=== PATIENT | male | born 1980 | race African-American/Black ===

== ENCOUNTER 2017-07-27 14:16 | Emergency (ER) | payer OTHER ==
[2017-07-27 14:25] VITALS: BP 148/71; PULSE 92; TEMP 99.1; BMI 32.1
[2017-07-27] MEDS ORDERED: ONDANSETRON 4 MG/2 ML VIAL IVPUSH ONE ×2 (15:19→19:45)
[2017-07-27] MEDS ORDERED: SODIUM CHLORIDE 1,000 ML IV STA (15:19)
--- NOTE | 2017-07-27 15:19 | PDOC ---
History of Present Illness - General Chief Complaint: Vomiting/Diarrhea Stated Complaint: Vomiting/Diarrhea Time Seen by Provider: 07/27/17 15:18 History Source: Patient - History of Present Illness Timing/Duration: reports: constant Abdominal Pain Onset Location: reports: generalized abdomen Past History - Past Medical History Allergies/Adverse Reactions: Allergies Allergy/AdvReac Type Severity Reaction Status Date / Time No Known Allergies Allergy Verified 07/27/17 14:21 Home Medications: Ambulatory Orders NK [No Known Home Medication] 11/10/16 Anemia: No Asthma: No Cancer: No Cardiac Disorders: No CVA: No COPD: No CHF: No Dementia: No Diabetes: No GI Disorders: No Disorders: No HTN: No Hypercholesterolemia: No Liver Disease: No Seizures: No Thyroid Disease: No Other medical history: denies - Surgical History Abdominal Surgery: No Appendectomy: No Cardiac Surgery: No Cholecystectomy: No Lung Surgery: No Neurologic Surgery: No Orthopedic Surgery: No - Immunization History Immunization Up to Date: Yes - Suicide/Smoking/Psychosocial Hx Smoking Status: No Smoking History: Never smoked Have you smoked in the past 12 months: No Number of Cigarettes Smoked Daily: 0 Hx Alcohol Use: No Drug/Substance Use Hx: No Substance Use Type: Marijuana Hx Substance Use Treatment: No Review of Systems - Review of Systems Constitutional: No: Chills, Fever ABD/GI: Yes: Diarrhea, Nausea, Vomiting, Abdominal cramping *Physical Exam - Vital Signs Last Vital Signs Temp Pulse Resp BP Pulse Ox 99.1 F 92 H 20 148/71 99 07/27/17 14:22 07/27/17 14:22 07/27/17 14:22 07/27/17 14:22 07/27/17 14:22 - Physical Exam General Appearance: Yes: Appropriately Dressed. No: Apparent Distress HEENT: positive: Normal Voice Neck: positive: Supple Respiratory/Chest: negative: Respiratory Distress Gastrointestinal/Abdominal: positive: Soft. negative: Tender Musculoskeletal: negative: CVA Tenderness Integumentary: positive: Dry, Warm Neurologic: positive: Fully Oriented, Alert, Normal Mood/Affect ED Treatment Course - LABORATORY CBC & Chemistry Diagram: 07/27/17 17:19 07/27/17 17:19 Medical Decision Making - Medical Decision Making 07/27/17 16:43 36-year-old male, denies any past medical history, here with nausea, vomiting and diarrhea. Patient states symptoms started several hours after eating [place] food Angel night. Has had numerous episodes of non-bloody non-bilious vomitus and non-bloody diarrhea. At some point started to have vague abdominal discomfort. Tried drinking gingerale with no relief. No fevers or chills. No sick contacts or recent travel. See exam Possibly gastroenteritis No RF for serious dysentery Stable w/ benign abd -IVF -zofran -labs -reassess 07/27/17 18:59 Signed out to JUAN Sen pending chem and reassessment 07/27/17 18:54 *DC/Admit/Observation/Transfer Diagnosis at time of Disposition: Gastroenteritis - Discharge Dispostion Condition at time of disposition: Improved - Referrals Referrals: Gauri Barnes MD [Primary Care Provider] - - Patient Instructions Printed Discharge Instructions: Viral Gastroenteritis Additional Instructions: The BRAT diet is a bland-food diet that is often recommended for adults and children. BRAT stands for Bananas, Rice, Applesauce and [place]. The BRAT diet can help you recover from an upset stomach or diarrhea for the following reasons : It includes binding foods. These are low-fiber foods that can help make your stools firmer. It includes bananas, which are high in potassium and help replace nutrients your body has lost because of vomiting or diarrhea. Follow diet for the next 48 hrs only, then you can resume your normal diet Return to ED for worsening of symptoms
[2017-07-27] MEDS ORDERED: ONDANSETRON 4 MG/2 ML VIAL ONE ×2 (16:29→19:55)
[2017-07-27 18:01] LABS: BASOPHIL 0.4 % (0-2.0); EOSINOPHIL 0.8 % (0-4.5); MCH 29.3 pg (25.7-33.7); MCHC 33.7 g/dl (32.0-35.9); MEAN CELL VOLUME 87.2 fl (80-96); NEUTROPHILS 66.8 % (42.8-82.8); PLATELET COUNT 160 K/MM3 (134-434); RDW 14.3 % (11.9-15.9); WHITE BLOOD COUNT 9.2 K/mm3 (4.0-10.0)
--- NOTE | 2017-07-27 19:14 | PDOC ---
*Physical Exam - Vital Signs Last Vital Signs Temp Pulse Resp BP Pulse Ox 99.1 F 92 H 20 148/71 99 07/27/17 14:22 07/27/17 14:22 07/27/17 14:22 07/27/17 14:22 07/27/17 14:22 - Physical Exam Comments: 07/27/17 19:13 Sign-out received from outgoing ER provider Ruthy. Pt interviewed and examined. Briefly, patient is a 36 yo M with no significant PMH who presents to ED with vomiting and diarrhea x 3 days after eating [place] food. Received IVF and Zofran thus far. At this time patient states he is still not feeling well and that he just went to the bathroom and vomited and had an episode of diarrhea. He states "I feel like I have to pass bowels but whenever I go it's just water. " -Zofran, Maalox, Loperamide, Protonix, Pepcid Ancillary studies reviewed. Awaiting chemistry; will reassess. 07/27/17 19:46 Chemistry hemolyzed for second time. RN to redraw. 07/27/17 21:00 CMP results unremarkable. Patient reassessed; states he is feeling better at this time and is ready to go home. Zofran, loperamide rx sent to pharm. Advised patient to take medications as prescribed and f/u with PCP if symptoms persist. Advised patient of signs and symptoms for return to ER; patient verbalized understanding and agrees to plan. ED Treatment Course - LABORATORY CBC & Chemistry Diagram: 07/27/17 17:19 07/27/17 20:10 - ADDITIONAL ORDERS Additional order review: Laboratory Results 07/27/17 17:19 Sodium Cancelled Potassium Cancelled Chloride Cancelled Carbon Dioxide Cancelled Anion Gap Cancelled BUN Cancelled Creatinine Cancelled Creat Clearance w eGFR Cancelled Random Glucose Cancelled Calcium Cancelled Total Bilirubin Cancelled AST Cancelled ALT Cancelled Alkaline Phosphatase Cancelled Total Protein Cancelled Albumin Cancelled 07/27/17 17:19 RBC 5.48 MCV 87.2 MCHC 33.7 RDW 14.3 MPV 11.0 Neutrophils % 66.8 D Lymphocytes % 19.6 D Monocytes % 12.4 H Eosinophils % 0.8 Basophils % 0.4 - Medications Given in the ED: ED Medications Discontinued Medications Generic Name Dose Route Start Last Admin Trade Name Freq PRN Reason Stop Dose Admin Sodium Chloride 1,000 mls @ 1,000 mls/hr 07/27/17 15:19 07/27/17 16:30 Normal Saline - IV 07/27/17 16:18 1,000 mls/hr ASDIR STA Administration Ondansetron HCl 4 mg 07/27/17 15:19 07/27/17 16:30 Zofran Injection IVPUSH 07/27/17 15:20 4 mg ONCE ONE Administration *DC/Admit/Observation/Transfer Diagnosis at time of Disposition: Gastroenteritis - Discharge Dispostion Disposition: HOME Condition at time of disposition: Improved Admit: No - Prescriptions Prescriptions: Loperamide HCl/Simethicone [Imodium Multi-Symptom Rel Cplt] 1 each PO BID PRN # 14 tablet PRN Reason: Diarrhea Ondansetron [Zofran *Odt*] 8 mg SL TID #21 od.tablet - Referrals Referrals: Gauri Barnes MD [Primary Care Provider] - - Patient Instructions Printed Discharge Instructions: Viral Gastroenteritis Additional Instructions: Please take medications as prescribed and follow up with your primary care doctor if symptoms persist. As discussed, please drink plenty of fluids and follow the BRAT diet for the next 2 days. The BRAT diet is a bland-food diet that is often recommended for adults and children. BRAT stands for Bananas, Rice , Applesauce and [place]. The BRAT diet can help you recover from an upset stomach or diarrhea for the following reasons: It includes binding foods. These are low-fiber foods that can help make your stools firmer. It includes bananas, which are high in potassium and help replace nutrients your body has lost because of vomiting or diarrhea. Follow diet for the next 48 hrs only, then you can resume your normal diet. Return to ED for worsening of symptoms. - Post Discharge Activity
[2017-07-27] MEDS ORDERED: LOPERAMIDE HCL 1 MG/5 ML UNIT DOSE CUP PO ONE (19:45)
[2017-07-27] MEDS ORDERED: MAG HYDROX/AL HYDROX/SIMETH 355 ML ORAL.SUSP PO ONE (19:45)
[2017-07-27] MEDS ORDERED: FAMOTIDINE 20 MG/50 ML IVPB 50 ML IVPB ONE ×2 (19:45→19:55)
[2017-07-27] MEDS ORDERED: PANTOPRAZOLE 40 MG TABLET (FP) PO ONE (19:45)
[2017-07-27] MEDS ORDERED: MAG HYDROX/AL HYDROX/SIMETH 30 ML UNIT-DOSE CUP ONE (19:54)
[2017-07-27] MEDS ORDERED: LOPERAMIDE HCL 2 MG CAPSULE ONE (19:54)
[2017-07-27] MEDS ORDERED: PANTOPRAZOLE 40 MG TABLET (FP) ONE (19:54)
[2017-07-27 20:57] LABS: ALBUMIN 3.3 g/dl (3.4-5.0); ALK PHOS 75 U/L (45-117); ANION GAP 6 (8-16); BILIRUBIN,TOTAL 0.2 mg/dL (0.2-1.0); CALCIUM 8.2 mg/dL (8.5-10.1); CO2 28 mmol/L (21-32); CREATININE 0.7 mg/dL (0.7-1.3); GLUCOSE,RANDOM 84 mg/dL (74-106); SGOT/AST 37 U/L (15-37); SGPT/ALT 36 U/L (12-78); TOT PROT 6.1 g/dl (6.4-8.2)
== END 2017-07-27 21:31 | disposition home or self-care (01) ==
LOC: JER 14:16
PROC: 3E033GC Introduction of Other Therapeutic Substance into Peripheral Vein, Percutaneous Approach (ICD-10-PCS; principal; 2017-07-27)
PROC: 3E033GC Introduction of Other Therapeutic Substance into Peripheral Vein, Percutaneous Approach (ICD-10-PCS; 2017-07-27)
DX: K52.9 Noninfective gastroenteritis and colitis, unspecified (principal)
CPT/HCPCS: 36415; 80053; 85025; 99282-25

== ENCOUNTER 2018-01-19 11:57 | Emergency (ER) | payer OTHER ==
[2018-01-19 12:02] VITALS: BMI 35.6
[2018-01-19] MEDS ORDERED: SODIUM CHLORIDE 1,000 ML IV STA ×2 (13:21→15:24)
[2018-01-19] MEDS ORDERED: morphine CARPU-JECT 4 MG/1 ML DISP.SYRIN IVPUSH ONE (13:21)
--- NOTE | 2018-01-19 13:38 | PDOC ---
History of Present Illness - General History Source: Patient Exam Limitations: No Limitations - History of Present Illness Initial Comments: 01/19/18 14:15 Patient is a 37M with history of abscesses and syphilis here today complaining of an abscess to his buttock. He states that it started Thursday. He complains of associated pain with flatus and sitting. He complains of pain with urination as well. He states that he has not moved his bowels. He states he had an abscess on his inner thigh several days ago that resolved with warm compresses. Warm compresses has not been successful on this abscess. He has a history of syphilis , but he is refusing to be tested for HIV. Denies fevers, chills, nausea, vomiting. <Jean-Pierre Hernandez - Last Filed: 01/19/18 16:56> <Rosalie Owens - Last Filed: 01/19/18 17:12> - General Chief Complaint: Abscess Boil Stated Complaint: ABCESS TO BUTTOCK Time Seen by Provider: 01/19/18 12:45 Past History - Past Medical History Anemia: No Asthma: No Cancer: No Cardiac Disorders: No CVA: No COPD: No CHF: No Dementia: No Diabetes: No GI Disorders: No Disorders: No HTN: No Hypercholesterolemia: No Liver Disease: No Seizures: No Thyroid Disease: No Other medical history: H/O ABSCESS - Surgical History Abdominal Surgery: No Appendectomy: No Cardiac Surgery: No Cholecystectomy: No Lung Surgery: No Neurologic Surgery: No Orthopedic Surgery: No - Immunization History Immunization Up to Date: Yes - Suicide/Smoking/Psychosocial Hx Smoking Status: No Smoking History: Never smoked Have you smoked in the past 12 months: No Number of Cigarettes Smoked Daily: 0 Hx Alcohol Use: No Drug/Substance Use Hx: No Substance Use Type: Marijuana Hx Substance Use Treatment: No <Jean-Pierre Hernandez - Last Filed: 01/19/18 16:56> <Rosalie Owens - Last Filed: 01/19/18 17:12> - Past Medical History Allergies/Adverse Reactions: Allergies Allergy/AdvReac Type Severity Reaction Status Date / Time No Known Allergies Allergy Verified 01/19/18 11:58 Home Medications: Ambulatory Orders NK [No Known Home Medication] 01/19/18 Review of Systems - Review of Systems Comments:: 01/19/18 14:21 GENERAL/CONSTITUTIONAL: No fever or chills. No weakness. HEAD, EYES, EARS, NOSE AND THROAT: No change in vision. No sore throat. CARDIOVASCULAR: No chest pain or shortness of breath RESPIRATORY: No cough, wheezing, or hemoptysis. GASTROINTESTINAL: No nausea, vomiting, diarrhea or constipation. GENITOURINARY: Positive for dysuria. Negative for frequency. MUSCULOSKELETAL: No joint or muscle swelling or pain. No neck or back pain. SKIN: No rash NEUROLOGIC: No headache, vertigo, loss of consciousness, or change in strength/ sensation. ENDOCRINE: No increased thirst. No abnormal weight change HEMATOLOGIC/LYMPHATIC: No anemia, easy bleeding, or history of blood clots. ALLERGIC/IMMUNOLOGIC: No hives or skin allergy. <Jean-Pierre Hernandez - Last Filed: 01/19/18 16:56> *Physical Exam - Vital Signs Last Vital Signs Temp Pulse Resp BP Pulse Ox 97.6 F 101 H 20 150/63 99 01/19/18 11:57 01/19/18 11:57 01/19/18 11:57 01/19/18 11:57 01/19/18 11:57 - Physical Exam Comments: 01/19/18 14:21 GENERAL: Awake, alert, and fully oriented, in no acute distress BUTTOCKS: Large area of fluctuance with surrounding erythema on right side of gluteal fold towards the anus, tender HEAD: No signs of trauma, normocephalic, atraumatic EYES: PERRLA, EOMI, sclera anicteric, conjunctiva clear ENT: Auricles normal inspection, hearing grossly normal, nares patent, oropharynx clear without exudates. Moist mucosa NECK: Normal ROM, supple, no lymphadenopathy, JVD, or masses LUNGS: No distress, speaks full sentences, clear to auscultation bilaterally HEART: Regular rate and rhythm, normal S1 and S2, no murmurs, rubs or gallops, peripheral pulses normal and equal bilaterally. EXTREMITIES: Normal inspection, Normal range of motion, no edema. No clubbing or cyanosis. NEUROLOGICAL: Cranial nerves II through XII grossly intact. Normal speech, no focal sensorimotor deficits <Jean-Pierre Hernandez - Last Filed: 01/19/18 16:56> - Vital Signs Last Vital Signs Temp Pulse Resp BP Pulse Ox 97.6 F 101 H 20 150/63 99 01/19/18 11:57 01/19/18 11:57 01/19/18 11:57 01/19/18 11:57 01/19/18 11:57 <Rosalie Owens - Last Filed: 01/19/18 17:12> ED Treatment Course - LABORATORY CBC & Chemistry Diagram: 01/19/18 13:45 01/19/18 14:20 - RADIOLOGY Radiology Studies Ordered: Category Date Time Status ABDOMEN & PELVIS CT WITH CONTR [CT] Stat CT Scan 01/19/18 13:21 Ordered <Jean-Pierre Hernandez - Last Filed: 01/19/18 16:56> - LABORATORY CBC & Chemistry Diagram: 01/19/18 13:45 01/19/18 14:20 - ADDITIONAL ORDERS Additional order review: Laboratory Results 01/19/18 01/19/18 01/19/18 14:20 14:20 13:45 PT with INR 14.4 H INR 1.29 H Sodium 136 Cancelled Potassium 3.4 L Cancelled Chloride 105 Cancelled Carbon Dioxide 27 Cancelled Anion Gap 4 L Cancelled BUN 9 Cancelled Creatinine 0.8 Cancelled Creat Clearance w eGFR > 60 Cancelled Random Glucose 107 H Cancelled Calcium 8.2 L Cancelled Total Bilirubin 0.4 Cancelled AST 17 Cancelled ALT 23 Cancelled Alkaline Phosphatase 72 Cancelled Total Protein 6.0 L Cancelled Albumin 3.1 L Cancelled 01/19/18 13:45 PT with INR Cancelled INR Cancelled Sodium Potassium Chloride Carbon Dioxide Anion Gap BUN Creatinine Creat Clearance w eGFR Random Glucose Calcium Total Bilirubin AST ALT Alkaline Phosphatase Total Protein Albumin 01/19/18 13:45 RBC 4.91 MCV 87.6 MCHC 33.3 RDW 13.1 MPV 10.1 Neutrophils % No Result Required. Lymphocytes % No Result Required. - Medications Given in the ED: ED Medications Discontinued Medications Generic Name Dose Route Start Last Admin Trade Name Freq PRN Reason Stop Dose Admin Sodium Chloride 1,000 mls @ 1,000 mls/hr 01/19/18 13:21 01/19/18 14:00 Normal Saline - IV 01/19/18 14:20 1,000 mls/hr ASDIR STA Administration Ampicillin Sodium/Sulbactam 100 mls @ 200 mls/hr 01/19/18 14:08 01/19/18 14: 30 Sodium 3 gm/ Sodium Chloride IVPB 01/19/18 14:37 200 mls/hr ONCE ONE Administration Morphine Sulfate 4 mg 01/19/18 13:21 01/19/18 14:08 Morphine Injection - IVPUSH 01/19/18 13:22 4 mg ONCE ONE Administration <Rosalie Owens S - Last Filed: 01/19/18 17:12> Medical Decision Making - Medical Decision Making 01/19/18 14:24 Patient is 37M with history of syphilis and abscesses here today with abscess. Concern for fistula formation or perirectal abscess. Dr Paige evaluated patient, suggests making patient NPO, starting unasyn, and CT scan to evaluate extent of abscess. Suspect the abscess is more superficial. Will evaluate with cbc, cmp, pt/inr, ct abd/pelvis. Patient's tachycardia can be explained by pain. 01/19/18 15:27 Laboratory Tests 01/19/18 01/19/18 13:45 13:45 WBC 22.2 H Hgb 14.3 Hct 43.0 Plt Count 188 INR Cancelled CBC shows white count of 22. Patient is now febrile. Patient is now septic. Blood cultures drawn, second liter of fluid started. IV tylenol started. Pending CT. 01/19/18 16:30 CT shows 2.5x1.7cm abscess with surrounding gas locules in the skin and fat stranding concerning for necrotizing fasciitis. Patient re-examined, has no tenderness in perineum. No cellulitic changes in scrotum. 01/19/18 16:54 Dr Galeano consulted, suggests adding clindamycin for empiric coverage. <Jean-Pierre Hernandez - Last Filed: 01/19/18 16:56> *DC/Admit/Observation/Transfer - Transfer to Acute Care Facility Receiving Facility: [facility]. Accepting Physician:: Johana <Jean-Pierre Hernandez - Last Filed: 01/19/18 16:56> <Rosalie Owens - Last Filed: 01/19/18 17:12> Diagnosis at time of Disposition: Gluteal abscess - Discharge Dispostion Condition at time of disposition: Guarded
[2018-01-19] MEDS ORDERED: morphine SULFATE 4 MG/ML VIAL ONE (13:49)
[2018-01-19] MEDS ORDERED: AMPICILLIN NA/SULBACTAM NA 3 GM in SODIUM CHLORIDE 100 ML IVPB ONE (14:08)
[2018-01-19] MEDS ORDERED: AMPICILLIN NA/SULBACTAM NA 3 GM VIAL ONE (14:26)
[2018-01-19 14:33] LABS: HEMOGLOBIN 14.3 GM/dl (11.7-16.9); MCH 29.1 pg (25.7-33.7); MCHC 33.3 g/dl (32.0-35.9); MEAN CELL VOLUME 87.6 fl (80-96); MEAN PLT VOLUME 10.1 fl (7.5-11.1); PLATELET COUNT 188 K/MM3 (134-434); RBC 4.91 M/mm3 (4.00-5.60); RDW 13.1 % (11.9-15.9); WHITE BLOOD COUNT 22.2 K/mm3 (4.0-10.8)
[2018-01-19 14:54] LABS: INR 1.29 (0.82-1.09); PROTHROMBIN TIME (PATIENT) 14.4 SEC (10.2-13.0)
[2018-01-19 14:59] LABS: ALBUMIN 3.1 g/dl (3.5-5.0); ALK PHOS 72 U/L (32-92); ANION GAP 4 (8-16); BILIRUBIN,TOTAL 0.4 mg/dl (0.2-1.0); BLOOD UREA NITROGEN 9 mg/dl (7-18); CALCIUM 8.2 mg/dl (8.4-10.2); CHLORIDE 105 mmol/L (98-107); CO2 27 mmol/L (22-28); CREATININE 0.8 mg/dl (0.6-1.3); GLUCOSE,RANDOM 107 mg/dl (74-106); POTASSIUM 3.4 mmol/L (3.5-5.1); SGOT/AST 17 U/L (10-42); SGPT/ALT 23 U/L (10-40); SODIUM 136 mmol/L (136-145)
[2018-01-19] MEDS ORDERED: ACETAMINOPHEN 1000 MG/100 ML VIAL (NON FORMULARY) IVPB ONE ×2 (15:24→19:03)
[2018-01-19] MEDS ORDERED: ACETAMINOPHEN INJECTION 100 ML IVPB ONE ×2 (15:27→19:04)
--- NOTE | 2018-01-19 15:48 | PDOC ---
History of Present Illness - General Chief Complaint: Abscess Boil Stated Complaint: ABSCESS TO BUTTOCK Time Seen by Provider: 01/19/18 12:45 Past History - Past Medical History Allergies/Adverse Reactions: Allergies Allergy/AdvReac Type Severity Reaction Status Date / Time No Known Allergies Allergy Verified 01/19/18 11:58 Home Medications: Ambulatory Orders NK [No Known Home Medication] 01/19/18 Anemia: No Asthma: No Cancer: No Cardiac Disorders: No CVA: No COPD: No CHF: No Dementia: No Diabetes: No GI Disorders: No Disorders: No HTN: No Hypercholesterolemia: No Liver Disease: No Seizures: No Thyroid Disease: No Other medical history: H/O ABSCESS - Surgical History Abdominal Surgery: No Appendectomy: No Cardiac Surgery: No Cholecystectomy: No Lung Surgery: No Neurologic Surgery: No Orthopedic Surgery: No - Immunization History Immunization Up to Date: Yes - Suicide/Smoking/Psychosocial Hx Smoking Status: No Smoking History: Never smoked Have you smoked in the past 12 months: No Number of Cigarettes Smoked Daily: 0 Hx Alcohol Use: No Drug/Substance Use Hx: No Substance Use Type: Marijuana Hx Substance Use Treatment: No *Physical Exam - Vital Signs Last Vital Signs Temp Pulse Resp BP Pulse Ox 97.6 F 101 H 20 150/63 99 01/19/18 11:57 01/19/18 11:57 01/19/18 11:57 01/19/18 11:57 01/19/18 11:57 ED Treatment Course - LABORATORY CBC & Chemistry Diagram: 01/19/18 13:45 01/19/18 14:20 - ADDITIONAL ORDERS Additional order review: Laboratory Results 01/19/18 01/19/18 01/19/18 14:20 14:20 13:45 PT with INR 14.4 H INR 1.29 H Sodium 136 Cancelled Potassium 3.4 L Cancelled Chloride 105 Cancelled Carbon Dioxide 27 Cancelled Anion Gap 4 L Cancelled BUN 9 Cancelled Creatinine 0.8 Cancelled Creat Clearance w eGFR > 60 Cancelled Random Glucose 107 H Cancelled Calcium 8.2 L Cancelled Total Bilirubin 0.4 Cancelled AST 17 Cancelled ALT 23 Cancelled Alkaline Phosphatase 72 Cancelled Total Protein 6.0 L Cancelled Albumin 3.1 L Cancelled 01/19/18 13:45 PT with INR Cancelled INR Cancelled Sodium Potassium Chloride Carbon Dioxide Anion Gap BUN Creatinine Creat Clearance w eGFR Random Glucose Calcium Total Bilirubin AST ALT Alkaline Phosphatase Total Protein Albumin 01/19/18 13:45 RBC 4.91 MCV 87.6 MCHC 33.3 RDW 13.1 MPV 10.1 Neutrophils % No Result Required. Lymphocytes % No Result Required. - Medications Given in the ED: ED Medications Discontinued Medications Generic Name Dose Route Start Last Admin Trade Name Freq PRN Reason Stop Dose Admin Sodium Chloride 1,000 mls @ 1,000 mls/hr 01/19/18 13:21 01/19/18 14:00 Normal Saline - IV 01/19/18 14:20 1,000 mls/hr ASDIR STA Administration Ampicillin Sodium/Sulbactam 100 mls @ 200 mls/hr 01/19/18 14:08 01/19/18 14: 30 Sodium 3 gm/ Sodium Chloride IVPB 01/19/18 14:37 200 mls/hr ONCE ONE Administration Morphine Sulfate 4 mg 01/19/18 13:21 01/19/18 14:08 Morphine Injection - IVPUSH 01/19/18 13:22 4 mg ONCE ONE Administration *DC/Admit/Observation/Transfer Diagnosis at time of Disposition: Gluteal abscess - Discharge Dispostion Condition at time of disposition: Guarded - Referrals - Patient Instructions - Post Discharge Activity
[2018-01-19] MEDS ORDERED: VANCOMYCIN 1,000 MG in DEXTROSE 5%-WATER - 250 ML IVPB ONE (16:20)
[2018-01-19] MEDS ORDERED: VANCOMYCIN 1,000 MG VIAL (RESTRICTED TO ID ONLY) ONE (16:23)
[2018-01-19 16:36] LABS: URINE APPEARANCE Clear; URINE BILIRUBIN Negative (NEGATIVE); URINE GLUCOSE (UA) Negative (NEGATIVE); URINE KETONE Negative (NEGATIVE); URINE LEUK ESTERASE Negative (NEGATIVE); URINE NITRITE Negative (NEGATIVE); URINE PROTEIN Negative (NEGATIVE); URINE UROBILINOGEN 0.2 (0.2-1.0)
[2018-01-19 16:40] LABS: URINE BLOOD 1+ (NEGATIVE); URINE COLOR YELLOW
--- NOTE | 2018-01-19 16:43 | PDOC ---
Attending Attestation - Resident Resident Name: Jean-Pierre Hernandez - ED Attending Attestation I have performed the following: I have examined & evaluated the patient, The case was reviewed & discussed with the resident, I agree w/resident's findings & plan, Exceptions are as noted - HPI HPI: 37 y/o h/o painful buttock area, swelling. fever, chills for few days Had previous gluteal abscess drained in past years. 01/19/18 16:45 - Physicial Exam PE: Swollen tender, red area on the left buttock area 01/20/18 15:28 - Critical Care Time Total Critical Care Time: 30 Critical Care Statement: The care of this patient involved high complexity decision making to prevent further life threatening deterioration of the patient 's condition and/or to evaluate & treat vital organ system(s) failure or risk of failure. - Medical Decision Making Swelling, Tenderness in the right gluteal area Reviewed CT report, Discussed with Surgical ttending director prison. See Surgical Consult note 01/19/18 16:56 01/19/18 17:30CT report suggestive of Gas Gangrene Patient to be transfered to [facility] Accepting MD surgical service, Dr Hankins 01/20/18 15:29 Mental Health Exam - Mental Status Exam Cognitive Function: Grossly Intact Patient Appearance: Unkempt Mood: Hopeful Affect: Constricted
[2018-01-19] MEDS ORDERED: CLINDAMYCIN 900 MG PREMIX IVPB 900 MG/50 ML BAG IVPB ONE (16:52)
[2018-01-19] MEDS ORDERED: CLINDAMYCIN PHOSPHATE 600 MG/4 ML VIAL ONE (17:01)
[2018-01-19] MEDS ORDERED: CLINDAMYCIN PHOSPHATE 300 MG/2 ML VIAL ONE (17:01)
[2018-01-19 18:14] LABS: URINE BACTERIA FEW /hpf (NEGATIVE); URINE WBC 0-2 (0-2)
--- NOTE | 2018-01-19 18:14 | CONSULT ---
Consult Consult Specialty:: General Surgery Referred by:: Dr. Owens Reason for Consultation:: right perirectal abscess - History of Present Illness Chief Complaint: right perirectal pain, swelling History of Present Illness: Pt seen ~2pm in ER: 37yo healthy M noted right perirectal pain beginning yesterday, when he passed gas and realized it hurt. He thought he had a boil developing, so put tea tree oil on it, then Boil-ease, then tea bags, trying to bring it to a head, but it would not. He took several showers, and finally came to ER, where he was noted to have painful swelling and redness with fluctuance at right perirectal area. Surgery was asked to evaluate for possible drainage. CT and labs were pending. Pt reports chills yesterday, no n/v, normal BM yesterday before this, but none since. He had a burger ~11:30am and [employer], just before coming in; soda bottle is still with him. - History Source History Provided By: Patient Limitations to Obtaining History: No Limitations - Past Medical History Additional Medical History: none except few other boils in past, not in perirectal area before - Past Surgical History Past Surgical History: Yes: None - Alcohol/Substance Use Hx Alcohol Use: No History of Substance Use: reports: None, Marijuana (daily) - Smoking History Smoking history: Never smoked Have you smoked in the past 12 months: No Aproximately how many cigarettes per day: 0 - Social History ADL: Independent Home Medications - Allergies Allergies/Adverse Reactions: Allergies Allergy/AdvReac Type Severity Reaction Status Date / Time No Known Allergies Allergy Verified 01/19/18 11:58 - Home Medications Home Medications: Ambulatory Orders NK [No Known Home Medication] 01/19/18 Family Disease History - Family Disease History Family History: Unremarkable (noncontributory) Review of Systems - Review of Systems Constitutional: reports: Chills. denies: Fever Eyes: denies: Blurred Vision, Recent Change in Vision HENT: denies: Difficult Swallowing, Throat Pain Neck: denies: Swollen Glands, Tenderness Cardiovascular: denies: Chest Pain, Palpitations Respiratory: denies: Cough, SOB Gastrointestinal: denies: Abdominal Pain, Constipation (but no BM in last day), Diarrhea, Nausea, Vomiting Genitourinary: denies: Burning, Dysuria Musculoskeletal: denies: Back Pain, Joint Pain Integumentary: reports: Lump (right perirectal/hpi) Neurological: denies: Dizziness, Headache Physical Exam Vital Signs: Vital Signs Temperature 98.8 F 01/19/18 17:43 Pulse Rate 89 01/19/18 17:43 Respiratory Rate 18 01/19/18 17:43 Blood Pressure 120/65 01/19/18 17:43 O2 Sat by Pulse Oximetry (%) 99 01/19/18 17:43 Constitutional: Yes: Well Nourished, Calm, Mild Distress (secondary to pain) Eyes: Yes: Conjunctiva Clear, EOM Intact HENT: Yes: Atraumatic, Normocephalic Neck: Yes: Supple, Trachea Midline Cardiovascular: Yes: Tachycardia. No: Murmur Respiratory: Yes: Regular, CTA Bilaterally Gastrointestinal: Yes: Soft. No: Tenderness ...Rectal Exam: Yes: Erythema (right perirectal area, inferior, with raised, fluctuant swelling, very tender), Sphincter Tone Normal. No: Hemorrhoids/ External Musculoskeletal: No: Joint Stiffness, Joint Swelling Extremities: No: Cool, Cyanosis Integumentary: No: Jaundice, Rash Neurological: Yes: Alert, Oriented Psychiatric: Yes: Alert, Oriented Labs: CBC, BMP 01/19/18 13:45 01/19/18 14:20 Imaging - Results Cat Scan: Pending Problem List - Problems (1) Perirectal abscess Assessment/Plan: right posterior, several cm from anus, with some surrounding cellulitis ER to get CT if superficial enough for incision and drainage under local anesthesia, offered to patient to do in ER, which he agreed to if needs more extensive drainage/OR, would need transfer to [facility] main most likely, given non-NPO status and no after-hours OR available here at [facility] pain meds prn start antibiotics - Unasyn labs being repeated (were initially hemolyzed) will f/u after CT Code(s): K61.1 - RECTAL ABSCESS
[2018-01-19 18:15] LABS: PLATELET ESTIMATE ADEQUATE
[2018-01-19 20:24] VITALS: BP 123/64; PULSE 98; TEMP 99.9
== END 2018-01-19 20:15 | disposition short-term general hospital (02) ==
LOC: FER 11:57
PROC: 3E03329 Introduction of Other Anti-infective into Peripheral Vein, Percutaneous Approach (ICD-10-PCS; principal; 2018-01-19)
PROC: 3E033GC Introduction of Other Therapeutic Substance into Peripheral Vein, Percutaneous Approach (ICD-10-PCS; 2018-01-19)
PROC: 3E033NZ Introduction of Analgesics, Hypnotics, Sedatives into Peripheral Vein, Percutaneous Approach (ICD-10-PCS; 2018-01-19)
PROC: 3E0337Z Introduction of Electrolytic and Water Balance Substance into Peripheral Vein, Percutaneous Approach (ICD-10-PCS; 2018-01-19)
DX: L02.31 Cutaneous abscess of buttock (principal)
CPT/HCPCS: 36415; 72193-TC; 80053; 81003; 81015; 83605; 85025; 85610; 87040; 87086; 87389; 99285-25; J0131; J7030

== ENCOUNTER 2019-10-23 09:38 | Emergency (ER) | payer OTHER ==
[2019-10-23 09:43] VITALS: BP 133/79; PULSE 71; TEMP 98.2; BMI 33.5
--- NOTE | 2019-10-23 09:51 | PDOC ---
History of Present Illness - General Chief Complaint: Eye Problem Stated Complaint: RIGHT EYE REDNESS Time Seen by Provider: 10/23/19 09:42 History Source: Patient Exam Limitations: No Limitations - History of Present Illness Initial Comments: 10/23/19 09:48 39 y/o male with right eye drainage and irritation since yesterday. No vision problems or headache. No fever or chills. No N/V/d/c. Feels fine otherwise with no recent cold. Is this a multiple visit Asthma Patient?: No Past History - Past Medical History Allergies/Adverse Reactions: Allergies Allergy/AdvReac Type Severity Reaction Status Date / Time No Known Allergies Allergy Verified 10/23/19 09:39 Home Medications: Ambulatory Orders Tobramycin Sulf/Dexamethasone [Tobradex *Eye Drops*] 1 drop OD Q6HPO #5 drops Anemia: No Asthma: No Cancer: No Cardiac Disorders: No CVA: No COPD: No CHF: No Dementia: No Diabetes: No GI Disorders: No Disorders: No HTN: No Hypercholesterolemia: No Liver Disease: No Seizures: No Thyroid Disease: No - Surgical History Abdominal Surgery: No Appendectomy: No Cardiac Surgery: No Cholecystectomy: No Lung Surgery: No Neurologic Surgery: No Orthopedic Surgery: No - Immunization History Immunization Up to Date: Yes - Psycho Social/Smoking Cessation Hx Smoking Status: No Smoking History: Never smoked Have you smoked in the past 12 months: No Number of Cigarettes Smoked Daily: 0 Hx Alcohol Use: Yes (OCASIONAL) Drug/Substance Use Hx: Yes (OCASIONAL) Substance Use Type: Marijuana Hx Substance Use Treatment: No Review of Systems - Review of Systems Able to Perform ROS?: Yes Is the patient limited [place] proficient: No Constitutional: No: Chills, Fever HEENTM: Yes: Tearing. No: Eye Pain, Blurred Vision Respiratory: No: Cough, Shortness of Breath Cardiac (ROS): No: Chest Pain ABD/GI: No: Nausea, Vomiting Integumentary: No: Bruising All Other Systems: Reviewed and Negative *Physical Exam - Vital Signs Last Vital Signs Temp Pulse Resp BP Pulse Ox 98.2 F 71 15 133/79 100 10/23/19 09:39 10/23/19 09:39 10/23/19 09:39 10/23/19 09:39 10/23/19 09:39 - Physical Exam General Appearance: Yes: Nourished. No: Appropriately Dressed HEENT: positive: EOMI, AFTAB, Normal Voice, Symmetrical, Pharynx Normal. negative: Normal ENT Inspection (right eye injected with clear tearing, no papilladema or AV nicking) Neck: positive: Trachea midline, Normal Thyroid, Supple. negative: Tender, Rigid Respiratory/Chest: positive: Lungs Clear, Normal Breath Sounds. negative: Chest Tender, Respiratory Distress Cardiovascular: positive: Regular Rhythm, Regular Rate, S1, S2. negative: Edema , JVD, Murmur Vascular Pulses: Femoral (R): 4+, Femoral (L): 4+, Carotid (R): 4+, Carotid (L) : 4+, Dorsalis-Pedis (R): 4+, Doralis-Pedis (L): 4+ Gastrointestinal/Abdominal: positive: Normal Bowel Sounds, Flat, Soft. negative : Tender, Organomegaly Lymphatic: negative: Adenopathy, Tenderness, Other Musculoskeletal: positive: Normal Inspection. 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 Discharge - Discharge Information Problems reviewed: Yes Clinical Impression/Diagnosis: Conjunctivitis Qualifiers: Conjunctivitis type: acute Acute conjunctivitis type: unspecified Laterality: right Qualified Code(s): H10.31 - Unspecified acute conjunctivitis, right eye Condition: Stable - Admission No - Follow up/Referral - Patient Discharge Instructions Patient Printed Discharge Instructions: DI for Conjunctivitis Additional Instructions: Tobradex eye drops 1 drop 4x/day for 5 days to right eye Keep clean If worsen return to ER - Post Discharge Activity Work/Back to School Note: Back to Work
== END 2019-10-23 10:08 | disposition home or self-care (01) ==
LOC: FER 09:38
DX: H10.31 Unspecified acute conjunctivitis, right eye (principal)
CPT/HCPCS: 99281-25

== ENCOUNTER 2022-07-24 23:32 | Emergency (ER) | payer OTHER ==
[2022-07-24 23:45] VITALS: BP 123/87; PULSE 88; RESP 18; TEMP 97; BMI 34.8
[2022-07-25] MEDS ORDERED: KETOROLAC TROMETHAMINE 15 MG/ML VIAL IM ONE (00:32)
[2022-07-25] MEDS ORDERED: KETOROLAC TROMETHAMINE 15 MG/ML VIAL ONE (01:15)
== END 2022-07-25 02:08 | disposition home or self-care (01) ==
LOC: JER 23:32
PROC: 3E0233Z Introduction of Anti-inflammatory into Muscle, Percutaneous Approach (ICD-10-PCS; principal; 2022-07-25)
DX: M54.9 Dorsalgia, unspecified (principal)
CPT/HCPCS: 72070-TC-FY; 99284-25